=== PATIENT | female | born 1995 | race African-American/Black ===

== ENCOUNTER 2025-04-30 13:21 | Emergency (ER) | payer OTHER, SELFPAY ==
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
[2025-04-30 13:24] VITALS: BP 141/96; PULSE 91; RESP 16; TEMP 36.6; O2SAT 99
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
[2025-04-30] MEDS: HYDROcodone/acetaminophen (*CRX) 5-325 MG TABLET 1 TAB PO (19:15)
--- OUTSIDE RECORDS SUMMARY | 2025-04-30 19:53 | XMS_ITS | Encounter Summary ---
Author Organization [facility] Address [address] [place] [address] Care Team Providers Care Hydraulic Pile Hammer Operator Name Role Phone [facility] Primary Care Provider + Darlin Frazier-SUSIE Unavailable [phone] Encounter Details Date Type Department Care Team (Late st Contact Info) Description 12/23/2017 Abstract [facility] CONVERSION [address] [place] [address] , Generic ConversionMD Social History Tobacco Use Types Packs/Day Years Used Date Smoking Tobacco: Never Assessed Comments Unknown Sex and Gender Information Value Date Recorded Sex Assigned at Not on file Legal Sex Female 8:02 PM CDT Gender Identity Not on file Sexual Orientation Not on file documented as of this encounter Plan of Treatment Not on file documented as of this encounter Visit Diagnoses Not on filedocumented in this encounter Additional Health Concerns Infection Onset Date Last Indicated Resolved Time COVID-19 Rule Out 08/20/2022 08/20/2022 08/20/2022 6:34 AM TRANSCRIBER documented as of this encounter Care Teams Hydraulic Pile Hammer Operator Relationship Specialty Start Date End Date Darlin Frazier FNP-BC [address] [place] [id number] PCP - General NURSE PRACTITIONER 02/07/19 08/19/22 Darlin Frazier FNP-BC [address] [place] [id number] PCP - General NURSE PRACTITIONER 08/20/22 Darlin Frazier, [facility] [address] [place] [id number] NURSE PRACTITIONER 08/20/22 documented as of this encounter
--- OUTSIDE RECORDS SUMMARY | 2025-04-30 19:53 | XMS_ITS | Patient Health Record ---
Demographics Address [address] [facility] [address] [address] Preferred Language en Marital Status Unknown Mormonism Affiliation Unknown Race Unknown Ethnic Group Not or Lati no Author Organization [facility] Address [address] [place] [address] Support Name Relationship Address Phone Mojgan Godinez Guarantor Unknown [phone] Reason For Referral No Information Medications Medication SIG (Take, Route, Fr equency, Duration) Notes Start Date End Date Status CeleXA 10 MG take 1 tablet by ora l route every day Oral ([facility]) Active Immunizations Vaccine Route Administration Date Status Comme nts Td (adult) preservative free Unknown 05/28/2003 Administered Status:Completed TDAP VACCINE >7 IM Unknown 07/06/2011 Administered Stat us:Completed OPV Unknown 1995 Administered Status:Compl eted OPV Unknown 01/12/1996 Administered Status:Compl eted OPV Unknown 04/30/1996 Administered Status:Compl eted OPV Unknown 09/09/1996 Administered Status:Compl eted MMR VACCINE, SC Unknown 05/28/2001 Administered Status: Completed MMR VACCINE, SC Unknown 01/30/2003 Administered Status: Completed IPV, VFC Unknown 05/28/2003 Administered Status:Compl eted Hib, unspecified formulation Unknown 1995 Administered Status:Completed Hib, unspecified formulation Unknown 01/12/1996 Administered Status:Completed Hib, unspecified formulation Unknown 04/30/1996 Administered Status:Completed Hib, unspecified formulation Unknown 01/13/1997 Administered Status:Completed HEPB VACC PED/ADOL 3 DOSE IM Unknown 1995 Administered Status:Completed HEPB VACC PED/ADOL 3 DOSE IM Unknown 1995 Administered Status:Completed HEPB VACC PED/ADOL 3 DOSE IM Unknown 04/30/1996 Administered Status:Completed HEPB VACC PED/ADOL 3 DOSE IM Unknown 09/09/1996 Administered Status:Completed DTP-Hib Unknown 09/09/1996 Administered Status:Compl eted DTP Unknown 1995 Administered Status:Compl eted DTP Unknown 01/12/1996 Administered Status:Compl eted DTP Unknown 04/30/1996 Administered Status:Compl eted DTaP, 5 pertussis antigens Unknown 01/13/1997 Administe red Status:Completed VARICELLA IMMUNIZATION Unknown 05/28/2001 Administered Status:Completed VARICELLA IMMUNIZATION Unknown 07/06/2011 Administered Status:Completed Problems Problem Type SNOMED Code ICD Code Onset Dates Problem Status W/U Status Risk Notes Problem Depressive disorder, not elsewhere classified [phone] 0 Active confirmed ([facility]) Added By: Cecily Perez Plan Of Treatment No Information Insurance Providers Payer Name Payer Address Payer Phone Subscriber Number Group Number Insured Name Patient Relationship to Insured Coverage Start Date Coverage End Date [facility] [address] [place] [address] [id number] Mojgan Godinez Self - patient is the insured Medical (General) History Surgical History Surgery Date(Month/Year) 2009
--- OUTSIDE RECORDS SUMMARY | 2025-04-30 19:53 | XMS_ITS | Clinical Summary ---
Author Organization [facility] Address [address] [place] [address] Care Team Providers Care Shiatsu Therapist Name Role Phone Darlin Frazier [facility]- Primary Care Provider + Darlin Frazier ASSISTANT MEDIA PLANNER-BC Unavailable [phone] Allergies Active Allergy Reactions Criticality Noted Date Comments Aspirin Hives 02/08/2019 Naproxen Hives 08/20/2022 Medications vitamin, low iron, ( VITAMIN WITH IRON) 27-0.8 MG tablet Take 1 tablet by mouth daily. Active raltegravir (ISENTRESS) 400 MG tablet Take 1 tablet (400 mg total) by mouth 2 (two) times daily. 60 tablet 2 Active emtricitabine-tenof ovir (TRUVADA) 200-300 MG tablet Take 1 tablet by mouth daily. 30 tablet 2 Active ondansetron 4 MG disintegrating tablet Take 1 tablet (4 mg total) by mouth every 8 (eight) hours as needed for Nausea. 20 tablet 2 Active HYDROcodone-acetami nophen (NORCO) 5-325 MG tabletIndications:A cute Pain < 3 Day Supply Take 1-2 tablets by mouth every 6 (six) hours as needed. Indications: Acute Pain < 3 Day Supply 15 tablet 2 Active Active Problems Problem Noted Date Diagnosed Date Nonsustained ventricular tachycardia (CMS/HCC HH S/HCC) 08/20/2022 labor ([facility]/HCC) 02/09/2019 Social History Tobacco Use Types Packs/Day Years Used Date Smoking Tobacco: Every Day Cigarettes Smokeless Tobacco: Never Tobacco Cessation:Ready to Q uit: No; Counseling Given: Yes Alcohol Use Standard Drinks/Week Comments No 0 (1 standard drink = 0.6 oz pur e alcohol) AUDIT-C Answer Date Recorded Frequency of Alcohol Consumption Never 02/08/2019 Average Number of Drinks Not on file 019 Frequency of Binge Drinking Not on file 12/2018 Comments No Sex and Gender Information Value Date Recorded Sex Assigned at Not on file Legal Sex Female 8:02 PM CDT Gender Identity Not on file Sexual Orientation Not on file Last Filed Vital Signs Vital Sign Reading Time Taken Comments Blood Pressure 125/76 07/16/2024 2:35 PM CDT Pulse 63 07/16/2024 2:35 PM CDT Temperature 37.1 C (98.7 F) 07/16/2024 2:35 PM CDT Respiratory Rate 16 07/16/2024 2:35 PM CDT Oxygen Saturation 100% 07/16/2024 2:35 PM CDT Inhaled Oxygen Concentration - - Weight 61.7 kg (136 lb 0.4 oz) 07/16/2024 2:35 P M CDT Height 149.9 cm (4' 11) 07/16/2024 2:35 PM CDT Body Mass Index 27.47 07/16/2024 2:35 PM CDT Plan of Treatment Health Maintenance Due Date Last Done Comments Cervical Cancer Screening Pap Smear (Age 21 to 29) Every 3 Years 1995 Cervical Cancer Screening 1995 Annual Physical 1998 Hepatitis C 2013 Pneumococcal Vaccine: Pediatrics (0 to 5 Years) and At-Risk Patients (6 to 49 Years) (1 of 2 - PCV) 2014 HPV Vaccines (1 - 3-dose SCDM series) 2022 COVID-19 Vaccine ( - season) 2024 DTaP, Tdap and Td Vaccines (10 - Td or Tdap) 01/31/2029 01/31/2019, 03/13/2017, 12/14/2015, Additional history exists Hepatitis B Vaccines Completed 09/09/1996, 04/30/1996, 1995, Additional history exists Meningococcal B Vaccine Aged Out No l onger eligible based on patient's age to complete this topic Meningococcal Vaccine Aged Out No avril latasha eligible based on patient's age to complete this topic RSV Immunizations Under 20 Months Aged Out No longer eligible based on patient's age to complete this topic [facility] Advance Directives * Full Code (Latest Code Status on File) Date Activated Date Inactivated Comments 08/20/2022 6:47 AM 08/20/2022 1:54 PM Care Teams Shiatsu Therapist Relationship Specialty Start Date End Date Darlin Frazier [facility] [address] [place] [id number] PCP - General NURSE PRACTITIONER 08/20/22 [facility] [address] [place] [id number] NURSE PRACTITIONER 08/20/22
[2025-04-30] MEDS: KETOROLAC 30 MG/ML VIAL (*BKC) 15 MG IM (20:02)
[2025-04-30] MEDS: PSYLLIUM POWDER PACKET 1 PACKET PO (20:09)
== END 2025-04-30 20:12 | disposition home or self-care (01) ==
LOC: ANHED 19:51
PROVIDERS: Emergency Provider Student in an Organized Health Care Education/Training Program
DX: S02.40CK Maxillary fracture, right side, subsequent encounter for fracture with nonunion (principal); M47.812 Spondylosis without myelopathy or radiculopathy, cervical region; V29.99XD Rider (driver) (passenger) of other motorcycle injured in unspecified traffic accident, subsequent encounter
CPT/HCPCS: 70486; 72125; 96372; 99284; A9270; J1885

== ENCOUNTER 2025-10-06 11:48 | Emergency (ER) | payer OTHER, MEDICAID, SELFPAY ==
[2025-10-06 12:05] VITALS: BP 129/88; PULSE 87; RESP 16; TEMP 36.9; O2SAT 99
--- OUTSIDE RECORDS SUMMARY | 2025-10-06 12:26 | XMS_ITS | Clinical Summary ---
Author Organization [facility] Address [address] [place] [address] Care Team Providers Care Waxing Machine Operator Helper Name Role Phone Darlin Frazier [facility]- Primary Care Provider + Darlin Frazier BOAT WRAPPER-BC Unavailable [phone] Allergies Active Allergy Reactions Criticality Noted Date [...] Noted Date Diagnosed Date Nonsustained ventricular tachycardia 08/20/2022 labor 02/09/2019 Social History Tobacco Use Types Packs/Day [...] Comments Cervical Cancer Screening Pap Smear (Age 30 to 64) Every 3 Years 1995 Annual Physical 1998 Hepatitis C 2013 Pneumococcal Vaccine: Pediatrics (0 to 5 Years) and At-Risk Patients (6 to 49 Years) (1 of 2 - PCV) 2014 HPV Vaccines (1 - 3-dose SCDM series) 2022 COVID-19 Vaccine ( - season) 2025 Influenza Adult (#1) 2025 09/10/2020, 08/28/2019, 10/18/2018, Additional history exists Cervical Cancer Screening Pap with HPV Testing (Age 30 to 64) Every 5 Years 2025 Cervical Cancer Screening with HPV 2025 DTaP, Tdap and Td Vaccines (10 - Td or Tdap) 01/31/2029 01/31/2019, 03/13/2017, 12/14/2015, Additional history exists Hepatitis B Vaccines Completed 09/09/1996, 04/30/1996, 1995, Additional history exists Hepatitis A Vaccines Aged Out No long er eligible based on patient's age to complete this topic Meningococcal B Vaccine Aged Out No l onger eligible based on patient's age to complete this topic Meningococcal Vaccine Aged Out No avril latasha eligible based on patient's age to complete this topic RSV Immunizations Under 20 Months Aged Out No longer eligible based on patient's age to complete this topic [facility] Advance Directives * Full Code (Latest Code Status on File) Date Activated Date Inactivated Comments 08/20/2022 6:47 AM 08/20/2022 1:54 PM Care Teams Waxing Machine Operator Helper Relationship Specialty Start Date End Date Darlin Frazier FNP-BC [address] [place] [id number] PCP - General NURSE PRACTITIONER 08/20/22 Darlin Frazier FNP-BC [address] [place] [id number] NURSE PRACTITIONER 08/20/22
--- OUTSIDE RECORDS SUMMARY | 2025-10-06 12:26 | XMS_ITS | Patient Health Record ---
Author Organization [facility] Address [address] [place] [address] Support Name Relationship Address Phone Mojgan Godinez Guarantor Unknown [phone] Reason For Referral No Information Medications Medication SIG (Take, Route, Fr equency, Duration) Notes Start Date End Date Status CeleXA 10 MG take 1 tablet by ora l route every day Oral ([facility]) Active Immunizations Vaccine Route Administration Date Status Comme nts VARICELLA IMMUNIZATION Unknown 05/28/2001 Administered Status:Completed VARICELLA IMMUNIZATION Unknown 07/06/2011 Administered Status:Completed TDAP VACCINE >7 IM Unknown 07/06/2011 Administered Stat us:Completed Td (adult) preservative free Unknown 05/28/2003 Administered Status:Completed OPV Unknown 1995 Administered Status:Compl eted OPV [...] pertussis antigens Unknown 01/13/1997 Administe red Status:Completed Problems Problem Type SNOMED Code ICD Code Onset Dates Problem Status W/U Status Risk Notes Problem Depressive disorder ([id number]) Depressive disorder, not elsewhere classified (311) 10/09/19 10 Active confirmed ([facility]) Added By: Cecily Perez Plan Of Treatment No Information Insurance Providers Payer Name Payer Address Payer Phone Subscriber Number Group Number Insured Name Patient Relationship to Insured Coverage Start Date [facility]age End Date [facility] [address] [place] [address] [id number] [facility] Self - patient is the insured Medical (General) History Surgical History Surgery Date(Month/Year) 2009
--- OUTSIDE RECORDS SUMMARY | 2025-10-06 12:26 | XMS_ITS | Encounter Summary ---
Author Organization [facility] Address [address] [place] [address] Care Team Providers Care Buzzsaw Operator Helper Name Role Phone [facility] + [facility] Care Provider + Darlin Frazier-SUSIE Unavailable [phone] Encounter Details Date Type Department Care Team (Late st Contact Info) Description 12/23/2017 Abstract [facility] CONVERSION [address] [place] [address] , Generic ConversionMD Social History Tobacco Use [...] Rule Out 08/20/2022 08/20/2022 08/20/2022 6:[address] REPORTER documented as of this encounter Care Teams Buzzsaw Operator Helper Relationship Specialty Start Date End Date Darlin Frazier FNP-BC [address] [place] [id number] PCP - General NURSE PRACTITIONER 02/07/19 08/19/22 Darlin Frazier FNP-BC [address] [place] [phone] PCP - General NURSE PRACTITIONER 08/20/22 Darlin Frazier, [facility] [address] [place] [id number] NURSE PRACTITIONER 08/20/22 documented as of this encounter
[2025-10-06 15:00] VITALS: BP 128/85; PULSE 94; RESP 18; TEMP 36.4; O2SAT 96
[2025-10-06 15:23] LABS: Influenza A QL RT-PCR Negative (Negative); Influenza B QL RT-PCR Negative (Negative); RSV RNA, RT-PCR Negative (Negative); SARS-CoV-2 RNA PCR Negative (Negative)
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
[2025-10-06 16:27] LABS: Strep Group A RT-PCR NOT DETECTED (Negative)
[2025-10-06 16:50] VITALS: O2SAT 99
== END 2025-10-06 17:00 | disposition home or self-care (01) ==
PROVIDERS: Emergency Provider Physician Assistant
DX: J06.9 Acute upper respiratory infection, unspecified (principal); J02.9 Acute pharyngitis, unspecified; Z20.822 Contact with and (suspected) exposure to COVID-19
CPT/HCPCS: 87637; 87651; 99283